=== PATIENT | male | born 1940 | race Caucasian/White ===

== ENCOUNTER 2017-07-07 12:13 | Inpatient (IN) | payer MEDICARE ==
--- NOTE | 2017-07-07 13:10 | ED ---
General Adult HPI - General Chief complaint: Fall Stated complaint: FALL Time Seen by Provider: 07/07/17 12:17 Source: patient, family, RN notes reviewed, old records reviewed Mode of arrival: EMS Limitations: altered mental status - History of Present Illness Initial comments: This is a 77-year-old male to the ER status post fall. Fall with hitting his head. Patient is poor historian so history is obtained by , patient is on Eliquis did fall did hit his head and was found this morning with bleeding in his bed, minimal in the blood was dry, fall occurred last night unsure what time - Related Data Home Medications Medication Instructions Recorded Confirmed Apixaban [Eliquis] 5 mg PO BID 03/29/16 07/07/17 Citalopram Hydrobromide [CeleXA] 20 mg PO DAILY 03/29/16 07/07/17 Folic Acid 0.8 mg PO DAILY 03/29/16 07/07/17 Lisinopril 40 mg PO DAILY 03/29/16 07/07/17 Solifenacin Succinate [Vesicare] 10 mg PO DAILY 03/29/16 07/07/17 amLODIPine [Norvasc] 2.5 mg PO DAILY 03/29/16 07/07/17 Atorvastatin [Lipitor] 10 mg PO DAILY 07/07/17 07/07/17 Multivitamins, Thera [Multivitamin 1 tab PO DAILY 07/07/17 07/07/17 (formulary)] Allergies Allergy/AdvReac Type Severity Reaction Status Date / Time No Known Allergies Allergy Verified 07/07/17 12:55 Review of Systems ROS Statement: Those systems with pertinent positive or pertinent negative responses have been documented in the HPI. ROS Other: All systems not noted in ROS Statement are negative. Past Medical History Past Medical History: Cancer, CVA/TIA, Dementia, Hypertension, Prostate Disorder History of Any Multi-Drug Resistant Organisms: None Reported Past Surgical History: Appendectomy, Hernia Repair, Prostate Surgery Past Psychological History: Depression Smoking Status: Never smoker Past Alcohol Use History: Rare Past Drug Use History: None Reported General Exam Limitations: altered mental status General appearance: alert, in no apparent distress Head exam: Present: normocephalic, normal inspection. Absent: atraumatic ( Patient does have abrasion to rear aspect of had) Eye exam: Present: normal appearance, PERRL, EOMI. Absent: scleral icterus, conjunctival injection, periorbital swelling ENT exam: Present: normal exam, mucous membranes moist Neck exam: Present: normal inspection. Absent: tenderness, meningismus, lymphadenopathy Respiratory exam: Present: normal lung sounds bilaterally. Absent: respiratory distress, wheezes, rales, rhonchi, stridor Cardiovascular Exam: Present: regular rate, normal rhythm, normal heart sounds. Absent: systolic murmur, diastolic murmur, rubs, gallop, clicks GI/Abdominal exam: Present: soft, normal bowel sounds. Absent: distended, tenderness, guarding, rebound, rigid Extremities exam: Present: normal inspection, full ROM, normal capillary refill. Absent: tenderness, pedal edema, joint swelling, calf tenderness Back exam: Present: normal inspection Neurological exam: Present: alert, oriented X3, CN II-XII intact Psychiatric exam: Present: normal affect, normal mood Skin exam: Present: warm, dry, intact, normal color. Absent: rash Course Vital Signs 07/07/17 07/07/17 12:15 13:21 Temperature 98.0 F Pulse Rate 106 H 78 Respiratory 20 20 Rate Blood Pressure 139/79 128/78 O2 Sat by Pulse 92 L 95 Oximetry - Reevaluation(s) Reevaluation #1: 07/07/17 13:09 Patient's outpatient this morning when she went to get her medications, bleeding from head, again at this time patient unable to give history Medical Decision Making - Medical Decision Making 77 male the ER for evaluation, patient status post fall, abrasion to posterior had which has no knee neater reason for sutures, patient can be discharged home - Radiology Data Radiology results: report reviewed (CT brain C-spine negative chest x-ray pelvis x-ray negative), image reviewed Disposition Clinical Impression: Fall, Head injury, Abrasion head Disposition: HOME SELF-CARE Instructions: Fall Prevention for Older Adults (ED), Abrasion (ED) Referrals: Ely Hale MD [STAFF PHYSICIAN] - 1-2 days
--- NOTE | 2017-07-07 13:29 | CT ---
EXAMINATION TYPE: CT brain evgeny veliz con DATE OF EXAM: 07/07/2017 COMPARISON: NONE HISTORY: Fall CT DLP: 1937 mGycm Automated exposure control for dose reduction was used. TECHNIQUE: CT scan of the head and cervical spine are performed without contrast. FINDINGS: Cerebral vascular calcifications are present. The ventricles and sulci are within normal l imits in size. Cephalohematoma is noted over the right parietal region towards the calvarium barium convexity. There is extensive white matter demyelination present. Additionally the basal ganglia on t he left shows low attenuation with questionable mass effect on the left lateral ventricle frontal hor n. Dense focus on axial image 29 within the basal ganglia on the left could represent a focal thrombo sis felt to be more likely than hemorrhage. The globes are intact and the visualized sinuses are melquiades r. Cervical spine is visualized in its entirety from C1 through upper thoracic levels and demonstrates s atisfactory alignment without evidence of acute fracture or dislocation. Prevertebral soft tissue ap pears within normal limits. The C1-C2 articulation is unremarkable. Calcified granuloma present righ t upper lobe. Multilevel spondylosis in the cervical spine, loss of disc height at the intervertebral levels. No acute fracture or subluxation is evident. IMPRESSION: 1. There is no acute fracture or dislocation evident in the cervical spine. 2. There may be subacute ischemia involving the basal ganglia on the left, left cerebral hemisphere, there is evidence of chronic small vessel ischemia. Difficult to exclude an underlying mass, consider follow-up. Posttraumatic changes to the scalp as described.
--- NOTE | 2017-07-07 14:03 | XR ---
EXAMINATION TYPE: XR chest 2V DATE OF EXAM: 07/07/2017 COMPARISON: 03/29/2016 HISTORY: Fall TECHNIQUE: Frontal and lateral views of the chest are obtained. FINDINGS: Low lung volumes accentuating the pulmonary vasculature. There is no focal air space opaci ty, pleural effusion, or pneumothorax seen. The cardiac silhouette size is upper limits of normal. The osseous structures are intact. Incidental note is made of a cardiac loop recorder. Mild bilatera l chromic clavicular arthropathy is incidentally noted. IMPRESSION: No acute cardiopulmonary process.
--- NOTE | 2017-07-07 14:09 | XR ---
EXAMINATION TYPE: XR pelvis AP view DATE OF EXAM: 07/07/2017 CLINICAL HISTORY: Pain after a fall TECHNIQUE: A single AP view of the pelvis is obtained. COMPARISON: None. FINDINGS: There is no acute fracture/dislocation evident in the pelvis. The hip and sacroiliac join ts appear symmetric and unremarkable. The overlying soft tissue appears unremarkable. Moderate bilat eral femoral acetabular arthropathy is seen as subchondral cysts, small marginal osteophytes, acetabu lar roof sclerosis and joint space narrowing. Minimal degenerative changes of the lumbosacral junctio n are noted. Surgical clips are noted within the pelvis. IMPRESSION: There is no acute fracture or dislocation in the pelvis.
[2017-07-07] MEDS ORDERED: SODIUM CHLORIDE 0.9% 1,000 ML IV STA ×2 (14:44)
[2017-07-07] MEDS ORDERED: levETIRAcetam IV 1,500 MG in SALINE 1 100ML.BAG IVPB STA (14:45)
--- NOTE | 2017-07-07 15:07 | ED ---
Medical Decision Making - Medical Decision Making 77 male who came in today status post fall on anticoagulation. Prior to discharge the patient began exhibiting seizure-like activities to a partial seizure right face right upper extremity, that resolved on its own at that time patient's placed on seizure medication was re-imaged for a CAT scan with no bleed. Patient be admitted for neurological evaluation regarding causes of seizure, recent CVA - Lab Data Result diagrams: 07/07/17 14:58 07/07/17 14:58 Lab Results 07/07/17 07/07/17 07/07/17 Range/Units 14:58 14:58 14:58 WBC 17.3 H (3.8-10.6) k/uL RBC 5.10 (4.30-5.90) m/uL Hgb 16.2 (13.0-17.5) gm/dL Hct 48.8 (39.0-53.0) % MCV 95.7 (80.0-100.0) fL MCH 31.8 (25.0-35.0) pg MCHC 33.2 (31.0-37.0) g/dL RDW 12.7 (11.5-15.5) % Plt Count 312 (150-450) k/uL Neutrophils % 85 % Lymphocytes % 10 % Monocytes % 4 % Eosinophils % 0 % Basophils % 0 % Neutrophils # 14.6 H (1.3-7.7) k/uL Lymphocytes # 1.8 (1.0-4.8) k/uL Monocytes # 0.6 (0-1.0) k/uL Eosinophils # 0.0 (0-0.7) k/uL Basophils # 0.0 (0-0.2) k/uL PT (9.0-12.0) sec INR (<1.2) APTT (22.0-30.0) sec Sodium 142 (137-145) mmol/L Potassium 3.7 (3.5-5.1) mmol/L Chloride 100 (98-107) mmol/L Carbon Dioxide 20 L (22-30) mmol/L Anion Gap 22 mmol/L BUN 16 (9-20) mg/dL Creatinine 0.99 (0.66-1.25) mg/dL Est GFR (MDRD) Af Amer >60 (>60 ml/min/1.73 sqM) Est GFR (MDRD) Non-Af >60 (>60 ml/min/1.73 sqM) Glucose 141 H (74-99) mg/dL Plasma Lactic Acid Reji (0.7-2.0) mmol/L Calcium 9.6 (8.4-10.2) mg/dL Phosphorus 3.6 (2.5-4.5) mg/dL Magnesium 1.9 (1.6-2.3) mg/dL Total Bilirubin 0.6 (0.2-1.3) mg/dL AST 28 (17-59) U/L ALT 43 (21-72) U/L Alkaline Phosphatase 80 (38-126) U/L Total Creatine Kinase 71 (55-170) U/L CK-MB (CK-2) 0.8 (0.0-2.4) ng/mL CK-MB (CK-2) Rel Index 1.1 Troponin I <0.012 (0.000-0.034) ng/mL Total Protein 7.0 (6.3-8.2) g/dL Albumin 4.6 (3.5-5.0) g/dL Urine Color Urine Appearance (Clear) Urine pH (5.0-8.0) Ur Specific [place] (1.001-1.035) Urine Protein (Negative) Urine Glucose (UA) (Negative) Urine Ketones (Negative) Urine Blood (Negative) Urine Nitrite (Negative) Urine Bilirubin (Negative) Urine Urobilinogen (<2.0) mg/dL Ur Leukocyte Esterase (Negative) Urine WBC (0-5) /hpf Urine Mucus (None) /hpf 07/07/17 07/07/17 07/07/17 Range/Units 14:58 14:58 14:58 WBC (3.8-10.6) k/uL RBC (4.30-5.90) m/uL Hgb (13.0-17.5) gm/dL Hct (39.0-53.0) % MCV (80.0-100.0) fL MCH (25.0-35.0) pg MCHC (31.0-37.0) g/dL RDW (11.5-15.5) % Plt Count (150-450) k/uL Neutrophils % % Lymphocytes % % Monocytes % % Eosinophils % % Basophils % % Neutrophils # (1.3-7.7) k/uL Lymphocytes # (1.0-4.8) k/uL Monocytes # (0-1.0) k/uL Eosinophils # (0-0.7) k/uL Basophils # (0-0.2) k/uL PT 11.1 (9.0-12.0) sec INR 1.2 H (<1.2) APTT 25.1 (22.0-30.0) sec Sodium (137-145) mmol/L Potassium (3.5-5.1) mmol/L Chloride (98-107) mmol/L Carbon Dioxide (22-30) mmol/L Anion Gap mmol/L BUN (9-20) mg/dL Creatinine (0.66-1.25) mg/dL Est GFR (MDRD) Af Amer (>60 ml/min/1.73 sqM) Est GFR (MDRD) Non-Af (>60 ml/min/1.73 sqM) Glucose (74-99) mg/dL Plasma Lactic Acid Reji 10.4 H* (0.7-2.0) mmol/L Calcium (8.4-10.2) mg/dL Phosphorus (2.5-4.5) mg/dL Magnesium (1.6-2.3) mg/dL Total Bilirubin (0.2-1.3) mg/dL AST (17-59) U/L ALT (21-72) U/L Alkaline Phosphatase (38-126) U/L Total Creatine Kinase (55-170) U/L CK-MB (CK-2) (0.0-2.4) ng/mL CK-MB (CK-2) Rel Index Troponin I (0.000-0.034) ng/mL Total Protein (6.3-8.2) g/dL Albumin (3.5-5.0) g/dL Urine Color Yellow Urine Appearance Clear (Clear) Urine pH 6.5 (5.0-8.0) Ur Specific [place] 1.020 (1.001-1.035) Urine Protein 1+ H (Negative) Urine Glucose (UA) Negative (Negative) Urine Ketones 1+ H (Negative) Urine Blood Negative (Negative) Urine Nitrite Negative (Negative) Urine Bilirubin Negative (Negative) Urine Urobilinogen <2.0 (<2.0) mg/dL Ur Leukocyte Esterase Negative (Negative) Urine WBC 1 (0-5) /hpf Urine Mucus Moderate H (None) /hpf - EKG Data -: EKG Interpreted by Me EKG shows normal: sinus rhythm Rate: normal Interpretation: other (EKG shows normal sinus rhythm at 75, MT 170, QRS 94, QTC 419) - Radiology Data Radiology results: report reviewed (repeat CT shows no acute bleed), image reviewed Disposition Clinical Impression: Fall, Head injury, Abrasion head, CVA (cerebral vascular accident), New onset seizure, Simple partial seizure disorder Disposition: ADMITTED IP TO THIS [facility] Condition: Serious Instructions: Fall Prevention for Older Adults (ED), Abrasion (ED) Referrals: Ely Hale MD [STAFF PHYSICIAN] - 1-2 days
[2017-07-07 15:11] LABS: Appearance,Urine Clear (Clear); Bilirubin,Urine Negative (Negative); Blood,Urine Negative (Negative); Color,Urine Yellow; Glucose,Urine (UA) Negative (Negative); Ketones,Urine 1+ (Negative); Leukocyte Esterase,Urine Negative (Negative); Mucus,Urine Moderate /hpf; Nitrite,Urine Negative (Negative); PH, Urine 6.5 (5.0-8.0); Protein,Urine 1+ (Negative); Urobilinogen,Urine <2.0 mg/dL (<2.0); WBC,Urine 1 /hpf (0-5)
[2017-07-07 15:12] LABS: Basophils % (A) 0 %; Eosinophils % (A) 0 %; HCT 48.8 % (39.0-53.0); HGB 16.2 gm/dL (13.0-17.5); Lymphocytes # (A) 1.8 k/uL (1.0-4.8); Lymphocytes % (A) 10 %; MCH 31.8 pg (25.0-35.0); MCHC 33.2 g/dL (31.0-37.0); MCV 95.7 fL (80.0-100.0); Mean Platelet Volume 6.9; Monocytes # (A) 0.6 k/uL (0-1.0); Monocytes % (A) 4 %; Neutrophils # (A) 14.6 k/uL (1.3-7.7); Neutrophils % (A) 85 %; Platelet Count 312 k/uL (150-450); RDW 12.7 % (11.5-15.5); WBC 17.3 k/uL (3.8-10.6)
[2017-07-07 15:15] LABS: ALT 43 U/L (21-72); AST 28 U/L (17-59); Albumin 4.6 g/dL (3.5-5.0); Alkaline Phosphatase 80 U/L (38-126); Anion Gap 22 mmol/L; Blood Urea Nitrogen 16 mg/dL (9-20); Calcium 9.6 mg/dL (8.4-10.2); Carbon Dioxide 20 mmol/L (22-30); Chloride 100 mmol/L (98-107); Glucose 141 mg/dL (74-99); Magnesium 1.9 mg/dL (1.6-2.3); Phosphorus 3.6 mg/dL (2.5-4.5); Potassium 3.7 mmol/L (3.5-5.1); Sodium 142 mmol/L (137-145); Total Bilirubin 0.6 mg/dL (0.2-1.3)
--- NOTE | 2017-07-07 15:15 | CT ---
EXAMINATION TYPE: CT brain wo con DATE OF EXAM: 07/07/2017 COMPARISON: NONE HISTORY: Sudden onset seizure while in EC CT DLP: 1187.9 mGycm Automated exposure control for dose reduction was used. Helical imaging through the brain FINDINGS: No interval change compared to prior exam. There is been interval placement of surgical sutures at th e level of the patient's posterior parietal laceration, cephalohematoma. IMPRESSION: CORRELATE FOR SUBACUTE ISCHEMIA, DIFFICULT TO EXCLUDE AN UNDERLYING MASS. DESCRIBED IN PRIOR REPOR T
[2017-07-07 15:17] LABS: INR 1.2 (<1.2); Partial Thromboplastin Time 25.1 sec (22.0-30.0); Prothrombin Time 11.1 sec (9.0-12.0)
[2017-07-07 15:22] LABS: Creatine Kinase 71 U/L (55-170)
[2017-07-07 15:34] LABS: Creatine Kinase MB 0.8 ng/mL (0.0-2.4); Troponin I <0.012 ng/mL (0.000-0.034)
[2017-07-07] MEDS ORDERED: SODIUM CHLORIDE 0.9% 1,000 ML IV SCH (16:15)
[2017-07-07 17:24] LABS: Glucose,Whole Blood 125 mg/dL (75-99)
[2017-07-07 17:49] VITALS: BMI 25.8
--- NOTE | 2017-07-07 18:51 | P.CNNES ---
History of Present Illness Consult date: 07/07/17 Reason for Consult: Patient admitted with new onset seizure and possible mass. History of Present Illness: This neurology consultation was notified to Dr. Fely Hale on 07/07/2017 at 5:45 PM. This patient is a 77-year-old right-handed white male who was brought into the emergency room after he sustained a fall at home. According to the last night he had fell out of bed. He had struck the back of his hand and there was blood this morning on his pillowcase. His noted the laceration to the right side of the scalp. She decided to bring him to the emergency room today for further evaluation regarding the fall and laceration to the scalp. He was seen in the emergency room today at 12:[address] Sandoval. Patient was sent for initial computed tomography scan of the brain at 12:26 PM. The CAT scan report of the brain and cervical spine indicated no acute fracture or dislocation evident in the cervical spine. There may be subacute ischemia involving the basal ganglia on the left and the left cerebral hemisphere. There is evidence of chronic small vessel ischemia. Difficult to exclude an underlying mass. There was posttraumatic changes on the scalp noted. The patient has a history of chronic atrial fibrillation. He has been on anticoagulation and is currently taking Eliquis. Since the CAT scan of the brain revealed no evidence of hemorrhage or bleeding the patient was being ready to be discharged home. Apparently within a short time of evaluation the patient was in the emergency room and was noted by his is having twitching of his right eyelid. This was then followed by 8 sudden onset of right arm and leg seizure-like activity. He appeared to be a partial seizure involving the right face and right upper and lower extremity. This lasted about 1-2 minutes in duration. This was witnessed by the . He appeared to be very confused following this event. The patient was loaded with IV Keppra in the ER of 1000 mg. He has been placed on maintenance dose of Keppra thousand milligrams every 12 hours. We will get a Keppra blood level tomorrow morning. As noted the patient has a long-standing history of dementia and parkinsonism. He has been followed at the [facility] geriatric neuro clinic with Dr. Casas. He has multiple diagnoses and has been noticed as having dementia which according to the has progressed significantly in the last 6 months. She is wanting to schedule a follow-up with her neurologist at the [facility] later this month. According to the the patient has been noticed also to be having right-sided facial droop for the past 3 weeks. She did not pay much attention to this but apparently did notice the facial drooping. Review of the computed tomography scan of the brain done earlier today does reveal a large area of ischemia involving the left MCA territory. The patient had a second CAT scan after he had the focal seizure in the ER. This CAT scan correlates with subacute ischemia with again difficulty to exclude an underlying mass. This scan was done at 1443 hrs. today. The patient was transferred to the intensive care unit. Review of the actual CAT scan films today both done earlier today continues to reveal evidence large area of ischemia in the left MCA territory. His focal right-sided seizure is felt to be secondary to the acute door subacute stroke. We would recommend to continue him on Keppra. We have discussed all of these findings today in detail with the patient's and daughter at bedside in the ICU. They did update me in terms of his history at the [facility] geriatric neuro clinic. We did discuss possibility of transferring the patient to the [facility] for further management but the and daughter would like to continue care here locally. They did contact Dr. Casas office who recommended he stay locally at this time. We are recommending a stat MRI of the brain to be done today for further evaluation. We will also obtain a EEG tomorrow morning for further assessment of his right focal seizure. We would like to rule out possibility of petechial hemorrhage on this patient as he has been on a look was for over a year. As mentioned he has a history of chronic atrial fibrillation. We would recommend a cardiology consultation for this patient as well. We will await the results of his neurological testing to be done and we will review these results tomorrow with his and daughter when they return to the ICU. This patient's overall prognosis at this time remains guarded. We will await his MRI results to be finalized and we will communicate these to the ICU nursing staff and to his and daughter tomorrow. Neurology is now been consulted for further evaluation and recommendations. Review of Systems Constitutional: Denies chills, Denies fever Eyes: denies blurred vision, denies pain Ears, nose, mouth and throat: Denies headache, Denies sore throat Cardiovascular: Denies chest pain, Denies shortness of breath Respiratory: Denies cough Gastrointestinal: Denies abdominal pain, Denies diarrhea, Denies nausea, Denies vomiting Musculoskeletal: Denies myalgias Integumentary: Denies pruritus, Denies rash Neurological: Reports aphasia, Reports change in mentation, Reports change in speech, Reports confusion, Reports convulsions, Reports memory loss, Reports seizures, Denies numbness, Denies weakness Psychiatric: Reports depression, Reports disorientation Past Medical History Past Medical History: Cancer, CVA/TIA, Dementia, Hypertension, Prostate Disorder History of Any Multi-Drug Resistant Organisms: None Reported Past Surgical History: Appendectomy, Hernia Repair, Prostate Surgery Past Psychological History: Depression Smoking Status: Never smoker Past Alcohol Use History: Rare Past Drug Use History: None Reported - Past Family History father History Unknown: Yes Medications and Allergies Home Medications Medication Instructions Recorded Confirmed Type Apixaban [Eliquis] 5 mg PO BID 03/29/16 07/07/17 History Citalopram Hydrobromide [CeleXA] 20 mg PO DAILY 03/29/16 07/07/17 History Folic Acid 0.8 mg PO DAILY 03/29/16 07/07/17 History Lisinopril 40 mg PO DAILY 03/29/16 07/07/17 History Solifenacin Succinate [Vesicare] 10 mg PO DAILY 03/29/16 07/07/17 History amLODIPine [Norvasc] 2.5 mg PO DAILY 03/29/16 07/07/17 History Atorvastatin [Lipitor] 10 mg PO DAILY 07/07/17 07/07/17 History Multivitamins, Thera [Multivitamin 1 tab PO DAILY 07/07/17 07/07/17 History (formulary)] Allergies Allergy/AdvReac Type Severity Reaction Status Date / Time No Known Allergies Allergy Verified 07/07/17 12:55 Physical Examination - Vital Signs Vital Signs: Vital Signs Temp Pulse Pulse Resp BP BP Pulse Ox 07/07/17 17:14 98.8 F 70 14 129/80 98 07/07/17 16:31 98.8 F 70 14 129/80 07/07/17 16:00 72 18 139/64 98 07/07/17 15:45 74 18 148/67 98 01/12/18 15:30 74 18 140/65 98 07/07/17 15:15 68 18 148/71 98 07/07/17 15:00 76 18 164/79 98 07/07/17 14:43 73 18 160/77 98 07/07/17 14:35 97.0 F L 60 18 136/74 93 L 07/07/17 13:21 78 20 128/78 95 07/07/17 12:15 98.0 F 106 H 20 139/79 92 L Intake and Output 07/07/17 07/07/17 07/07/17 06:59 14:59 22:59 Intake Total 100 Balance 100 Intake: IV 100 Sodium Chloride 0.9% 1, 100 000 ml @ 100 mls/hr IV . Q10H [facility] Rx#:[id number] Other: Weight 74.843 kg 74.84 kg Patient Weight 07/08/17 06:59 Weight 74.84 kg - Constitutional General appearance: average body habitus, cooperative - EENT EENT: PERRL, mucous membranes moist - Respiratory Respiratory: lungs clear, normal breath sounds - Cardiovascular Cardiovascular: normal S1, normal S2 Extremities: no peripheral edema bilaterally - Gastrointestinal Gastrointestinal: normoactive bowel sounds - Integumentary Integumentary: normal - Neurologic Cranial nerve examination: PERRL, EOMI, VFF, V1/V2/V3 grossly intact, intact gag reflex, intact corneal reflex, facial droop (Patient has a right upper motor neuron facial weakness.), normal palatal elevation Speech examination: intact Sensorimotor examination: intact Motor examination - right side: 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, 3/5: biceps, triceps, wrist flexion, wrist extension, 4/5: hip flexors, knee extensors, dorsiflexion, toe extension ( EHL), plantarflexion Motor examination - left side: 4/5: biceps, triceps, wrist flexion, wrist extension, cooling tower operator, hip flexors, knee extensors, dorsiflexion, toe extension (EHL) , plantarflexion Detailed sensory examination: intact Reflex and gait examination: intact Reflexes: 1+: ankle, bicep, knee, tricep - Musculoskeletal Musculoskeletal: no pain - Psychiatric Psychiatric: mood/affect appropriate, cooperative Results - Laboratory Findings CBC and BMP: 07/07/17 14:58 07/07/17 14:58 Abnormal Lab Findings: Abnormal Labs 0107/07/17 07/07/17 14:58 14:58 14:58 WBC 17.3 H Neutrophils # 14.6 H INR Carbon Dioxide 20 L Glucose 141 H POC Glucose (mg/dL) Plasma Lactic Acid Reji 10.4 H* Urine Protein Urine Ketones Urine Mucus 07/07/17 07/07/17 07/07/17 14:58 14:58 17:22 WBC Neutrophils # INR 1.2 H Carbon Dioxide Glucose POC Glucose (mg/dL) 125 H Plasma Lactic Acid Reji Urine Protein 1+ H Urine Ketones 1+ H Urine Mucus Moderate H Assessment and Plan (1) Acute ischemic left MCA stroke Current Visit: Yes Status: Acute Code(s): I63.512 - CEREB INFRC D/T UNSP OCCLS OR STENOS OF LEFT MID CEREB ART SNOMED Code(s): 111470888 (2) New onset seizure Current Visit: Yes Status: Acute Code(s): R56.9 - UNSPECIFIED CONVULSIONS SNOMED Code(s): 12666433 (3) Chronic atrial fibrillation Current Visit: Yes Status: Acute Code(s): I48.2 - CHRONIC ATRIAL FIBRILLATION SNOMED Code(s): 052824617 (4) Dementia Current Visit: Yes Status: Acute Code(s): F03.90 - UNSPECIFIED DEMENTIA WITHOUT BEHAVIORAL DISTURBANCE SNOMED Code(s): 72584269 (5) Parkinsonism Current Visit: Yes Status: Acute Code(s): G20 - PARKINSON'S DISEASE SNOMED Code(s): 75863336 (6) Head injury Current Visit: Yes Status: Acute Code(s): S09.90XA - UNSPECIFIED INJURY OF HEAD, INITIAL ENCOUNTER SNOMED Code(s): 49213472 Plan: This patient is a 77-year-old male who sustained a fall yesterday at home and was noted this morning as having bleeding on his pillowcase. His is very concerned and noted that he had suffered a head contusion with laceration to the scalp on the right parietal region. She decided to bring him today to the emergency room for further evaluation. He was seen in the ER today at [facility] by Dr. Sandoval. He has a history of chronic atrial fibrillation and has been on Eliquis. He was sent for a computed tomography scan of the brain and cervical spine. CAT scan of cervical spine revealed no acute fracture or dislocation. CAT scan of the brain revealed subacute ischemia involving the left cerebral hemisphere. It was difficult to exclude underlying mass. Patient was being readied for discharge home when he had a focal right-sided seizure involving face arm and leg. This lasted for 1-2 minutes in duration. He was sent for repeat computed tomography scan of the brain which revealed subacute ischemia and difficult to exclude an underlying mass. Patient was loaded with IV Keppra and transferred to the intensive care unit. Patient was seen in the ICU this evening and it was recommended to obtain a stat MRI of the brain with and without gadolinium for further evaluation of left hemispheric stroke and possible mass lesion. Patient is to continue on IV levetiracetam. He is currently on 1000 mg IV piggyback every 12 hours. We will check his level tomorrow morning. We will obtain an EEG tomorrow for further evaluation of his right focal seizure as well. Patient has been followed in the [facility] geriatric neuro clinic with Dr. Casas. The patient's and daughter were updated on this patient's neurological findings today in the ICU. All of his test results were discussed in detail. We did offer to transfer the patient to the [facility] however the and daughter would like to continue care here at this time. We did discuss our treatment plan to obtain a stat MRI of the brain this evening. We will obtain his EEG tomorrow for further evaluation. He will be maintained on IV Keppra and will be rechecked tomorrow on his anticonvulsant blood level. Both the and daughter were very appreciative of our recommendations and close monitoring of his condition. Once again review of his CAT scan suggest a acute versus subacute left MCA stroke with question of petechial hemorrhage. We will await the results of the MRI and we' ll give further recommendations. As noted on both CAT scans it is also some question of underlying mass. MRI will be done with and without gadolinium to further evaluate this finding as well. This patient's overall prognosis at this time remains very guarded. As noted case was discussed at length with the patient's and daughter in the ICU and all of their questions were answered. They're aware of his guarded condition. Time with Patient: Greater than 30
--- NOTE | 2017-07-07 20:07 | MR ---
EXAMINATION TYPE: MR brain wo/w con DATE OF EXAM: 07/07/2017 COMPARISON: NONE HISTORY: Sudden onset seizure while in EC, Gadavist 7.5 TECHNIQUE: Multiplanar, multisequence images of the brain and brainstem is performed without and with IV contras t, utilizing 7.5 mL intravenous Gadavist . FINDINGS: Diffusion weighted images demonstrate some high signal centrally extending along the area o f previously described abnormal density on CT in the basal ganglia extending laterally along the fron twyla lobe, there is some corresponding hyperintensity on T1 and inversion recovery sequences, some alexei rounding vasogenic edema and local mass effect on the left lateral ventricle. There is central low si gnal on T1-weighted images, ring enhancement peripherally, overall lesion measures 4.3 x 4.5 6.1 cm. Some mass effect again noted on the left lateral ventricle as on CT. The brain volume is age appropri ate. There is scattered and confluent hyperintensities within the periventricular white matter compat ible with chronic small vessel ischemia. Cortical atrophy is present. Low signal present in the left cerebral peduncle on T1 weighted images is noted, increased signal T2-weighted sequences Midline structures demonstrate small focal area of diminished signal within the anterior aspect of th e corpus callosum. The craniocervical junction appears within normal limits. Post contrast images d emonstrate no abnormal enhancement. The dural venous sinuses appear patent. The visualized sinuses ar e clear and the globes are intact. IMPRESSION: Consider brain abscess, by history previous cerebrovascular accident occurred 3 weeks christ or, comparison with previous exam may be of benefit if available. Report relayed to the intensive car e unit staff at the time of interpretation of the exam.
[2017-07-07 20:56] VITALS: PULSE 65; RESP 20; TEMP 97.8
[2017-07-07] MEDS ORDERED: levETIRAcetam IV 1,000 MG in SALINE 1 100ML.BAG IVPB SCH (21:00)
--- NOTE | 2017-07-07 21:20 | HP ---
HISTORY AND PHYSICAL CHIEF COMPLAINT: A 77-year-old white male admitted to the hospital with a worsening falls at home, fell out of the bed, was able to get back to the bed, where he was found with blood on his pillowcase in the morning. He was acting a little bit more lethargic and decreased speaking, which has progressively worsened over the past couple months, worsening speech and movement. Initial CT scan was done which shows no fracture, dislocation of cervical spine, but some subacute ischemia in the basal ganglia on the left cerebral hemisphere and possibly underlying mass. Neurology was consulted and he was admitted to the hospital. He has a history of chronic atrial fibrillation. He has been taking Eliquis for multiple months for atrial fibrillation. He was getting ready to be discharged home, as there was no acute bleed, at which time he seized with seizure-like activity, partial seizure involving the right face and right upper and lower extremity. It lasted 1-2 minutes in duration, witnessed by the , very confused. He was loaded in the ER with Keppra IV of 1000 mg. He has been followed by [facility] with Dr. Casas. He has had right facial droop for the past 3 weeks. He has large area of ischemia on the left MCA territory after review of the CT scan done today by Dr. Hale. He is admitted to the ICU with neurology consult and Keppra was being loaded. REVIEW OF SYSTEMS: He just mumbles, does not speak. He has good eye contact. He has some right facial paresis, right-sided weakness, maybe 2/5 strength in right arm and right leg. CARDIOVASCULAR: Irregular regular rhythm. LUNGS: Fairly clear. PSYCH: Does not talk. NEURO: As mentioned above. PSYCH: Some depression. Fourteen-point review of systems negative except for mentioned in HPI. Past medical history of some kind of cancer, CVA, TIA, dementia, hypertension, prostate disorder, appendectomy, hernia repair, surgical repair. SOCIAL HISTORY: He has 2 daughters. He is for 40 to 50-some years. 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 HOME MEDICATIONS: Include: 1. Eliquis 5 mg b.i.d. 2. Celexa 20 mg daily. 3. Folic acid 0.8 mg daily. 4. Lisinopril 40 mg daily. 5. VESIcare 10 mg daily. 6. Norvasc 2.5 mg daily. 7. Lipitor 10 mg daily. 8. Multivitamin daily. ALLERGIES: No known drug allergies. VITAL SIGNS: Pulse 70, respiration 14-16, temp 98.8, blood pressure 120s-130s over 80s, O2 98% on room air. CARDIOVASCULAR: Irregular regular rhythm. LUNGS: Transmitted upper airway sounds. GI: Soft, nontender. HEMATOLOGY: Negative Homans'. PSYCH: Fair mood and affect. OPHTHALMOLOGICAL: Pupils equal, round, reactive to light and accommodation. White count 17.3, hemoglobin 16.2, BUN 16, creatinine 0.99. ASSESSMENT: 1. Acute ischemic left middle cerebral artery stroke. 2. New onset seizure. 3. Chronic atrial fibrillation. 4. Abnormal MRI of the brain. 5. Breakthrough seizures. As he has atrial fibrillation, new onset seizure, started on IV Keppra piggyback every 12 hours 1000 mg. Await MRI of the brain. Possible discharge or possibly transfer to [facility] if anything severe shows up on the MRI. Discussed the case with the family and with the patient. MMODL / IJN: [id number] /
--- NOTE | 2017-07-07 21:33 | P.PN ---
Subjective Progress Note Date: 07/07/17 This is a progress note dictated on 07/07/2017 at 9:17 PM. This note is in regards to patient Jarad Livingston who is a 77-year-old male admitted to the intensive care unit earlier today. Patient had sustained a fall at home and was brought in for evaluation in the emergency room. He has a history of chronic atrial fibrillation and is on anticoagulation with Eliquis. He underwent a computed tomography scan of the brain in the emergency room today which revealed subacute ischemia and possible underlying mass lesion. Patient was being considered for discharge from the emergency room and then had a focal motor seizure on his right side. He was loaded with IV levetiracetam and was transferred to the intensive care unit. Please see neurology consultation of this patient's admission to the ICU today. Patient was able to undergo MRI of the brain with and without gadolinium this evening. 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 This mass is noted to be in the left temporal lobe. Radiologist recommends to consider brain abscess. MRI findings were discussed with the patient's and 2 daughters in the intensive care unit. We recommended neurosurgery consultation as soon as possible for review of this MRI findings. The patient's has decided to transfer this patient to [facility] neurosurgery for immediate evaluation. [facility] transfer team was contacted. Case was discussed with Dr. Castro in regards to the MRI findings and his neurological examination in the ICU. The patient's vital signs are stable. His white count is 17.1. He is afebrile. The patient was accepted for transfer to [facility] neurosurgery unit for further ongoing care. Dr. Castro is the accepting physician at [facility]. Patient will be transported by EMS with ACLS protocol to [facility] as soon as possible this evening. We are awaiting bed assignment for this patient which will be relayed to the ICU nurse here. We have discussed all of the patient's clinical findings and MRI findings in detail with the patient's and 2 daughters. They are very grateful for the quick timing of this patient's transfer tonight. We will contact [facility] Neurosurgery department tomorrow to find out his further treatment plan. The patient is neurologically stable at this time for transfer. We will await final bed assignment from [facility] this evening and the patient will be transferred by EMS to [facility] Neurosurgery. His overall prognosis at this time remains guarded. Objective - Vital Signs Vital signs: Vital Signs Temp 97.8 F 07/07/17 19:36 Pulse 65 07/07/17 20:30 Resp 20 07/07/17 20:30 BP 132/79 07/07/17 20:30 Pulse Ox 100 07/07/17 20:30 Intake & Output 07/07/17 07/07/17 07/08/17 06:59 18:59 06:59 Intake Total 100 Balance 100 Weight 74.84 kg Intake: IV 100 Sodium Chloride 0.9% 1, 100 000 ml @ 100 mls/hr IV . Q10H [facility] Rx#:[id number] Other: Voiding Method Urinal - Exam Physical examination: PHYSICAL EXAMINATION: Patient is resting comfortably in bed. VITAL SIGNS: Blood pressure is [132/79]. Heart rate is [65]. Respiration is [20] . Temperature is [97.8]. HEENT: Head is atraumatic, neck is supple, there were no carotid bruits. CHEST: Lungs are clear to auscultation and percussion. CARDIAC: S1, S2 normal rate and rhythm. There is no murmur. ABDOMEN: Soft and nontender. Bowel sounds are present. EXTREMITIES: There is no pedal edema. Peripheral pulses are present. Neurological examination: Patient is resting comfortably in bed. He has a right upper motor neuron facial droop. He has dysarthric speech. There is a right pronator drift and right-sided hemiparesis. Deep tendon reflexes are 1+ and symmetric. Plantar responses equivocal on the right and flexor on the left. - Labs CBC & Chem 7: 07/07/17 14:58 07/07/17 14:58 Labs: Abnormal Lab Results - Last 24 Hours (Table) 07/07/17 07/07/17 07/07/17 Range/Units 14:58 14:58 14:58 WBC 17.3 H (3.8-10.6) k/uL Neutrophils # 14.6 H (1.3-7.7) k/uL INR (<1.2) Carbon Dioxide 20 L (22-30) mmol/L Glucose 141 H (74-99) mg/dL POC Glucose (mg/dL) (75-99) mg/dL Plasma Lactic Acid Reji 10.4 H* (0.7-2.0) mmol/L Urine Protein (Negative) Urine Ketones (Negative) Urine Mucus (None) /hpf 07/07/17 07/07/17 07/07/17 Range/Units 14:58 14:58 17:22 WBC (3.8-10.6) k/uL Neutrophils # (1.3-7.7) k/uL INR 1.2 H (<1.2) Carbon Dioxide (22-30) mmol/L Glucose (74-99) mg/dL POC Glucose (mg/dL) 125 H (75-99) mg/dL Plasma Lactic Acid Reji (0.7-2.0) mmol/L Urine Protein 1+ H (Negative) Urine Ketones 1+ H (Negative) Urine Mucus Moderate H (None) /hpf Assessment and Plan (1) Acute ischemic left MCA stroke Current Visit: Yes Status: Acute Code(s): I63.512 - CEREB INFRC D/T UNSP OCCLS OR STENOS OF LEFT MID CEREB ART SNOMED Code(s): 185350961 (2) New onset seizure Current Visit: Yes Status: Acute Code(s): R56.9 - UNSPECIFIED CONVULSIONS SNOMED Code(s): 45300389 (3) Chronic atrial fibrillation Current Visit: Yes Status: Acute Code(s): I48.2 - CHRONIC ATRIAL FIBRILLATION SNOMED Code(s): 601210852 (4) Dementia Current Visit: Yes Status: Acute Code(s): F03.90 - UNSPECIFIED DEMENTIA WITHOUT BEHAVIORAL DISTURBANCE SNOMED Code(s): 12487781 (5) Parkinsonism Current Visit: Yes Status: Acute Code(s): G20 - PARKINSON'S DISEASE SNOMED Code(s): 55621302 (6) Head injury Current Visit: Yes Status: Acute Code(s): S09.90XA - UNSPECIFIED INJURY OF HEAD, INITIAL ENCOUNTER SNOMED Code(s): 66752766 Plan: This patient is a 77-year-old male named Jarad Livingston who was admitted to the intensive care unit this evening. Patient is being transferred to [facility] neurosurgery for further evaluation of possible left temporal lobe brain abscess. [facility] transfer team has been contacted. The accepting physician at [facility] is Dr. Castro. Patient will be transferred by EMS with ACLS protocol and we are awaiting only a bed assignment. Patient is neurologically stable for transfer today. His overall prognosis remains guarded. Case was discussed at length with the patient's and 2 daughters. They are very appreciative of the care given at [facility]. We will follow-up with the neurosurgery department tomorrow in terms of his further progress and treatment.
[2017-07-07 23:37] VITALS: BP 147/82
== END 2017-07-08 03:48 | disposition short-term general hospital (02) | DRG 64 ==
LOC: EC 12:13 → 6ICU 16:17
PROVIDERS: ADMIT Family Medicine; ATTEND Family Medicine
DX: I63.512 Cerebral infarction due to unspecified occlusion or stenosis of left middle cerebral artery (principal); R40.2212 Coma scale, best verbal response, none, at arrival to emergency department; G40.89 Other seizures; G20 Parkinson's disease; G81.91 Hemiplegia, unspecified affecting right dominant side; I48.2 Chronic atrial fibrillation; F03.90 Unspecified dementia, unspecified severity, without behavioral disturbance, psychotic disturbance, mood disturbance, and anxiety; F32.9 Major depressive disorder, single episode, unspecified; R29.715 NIHSS score 15; R40.2362 Coma scale, best motor response, obeys commands, at arrival to emergency department; R40.2142 Coma scale, eyes open, spontaneous, at arrival to emergency department; I10 Essential (primary) hypertension; N42.9 Disorder of prostate, unspecified; R93.8 Abnormal findings on diagnostic imaging of other specified body structures; S01.01XA Laceration without foreign body of scalp, initial encounter; R29.810 Facial weakness; Z79.01 Long term (current) use of anticoagulants; Z79.899 Other long term (current) drug therapy; W06.XXXA Fall from bed, initial encounter; Y92.003 Bedroom of unspecified non-institutional (private) residence as the place of occurrence of the external cause
CPT/HCPCS: 36415; 70450; 70553; 71046; 72125; 72170; 80053; 81001; 82550; 82553; 83605; 83735; 84100; 84484; 85025; 85610; 85730; 87086; 93005; 96360; 96361; 96374; 99285